=== PATIENT | male | born 1985 | race Two or more races ===

== ENCOUNTER 2020-01-15 12:08 | Outpatient (REF) | payer OTHER, SELFPAY | END 2020-01-15 12:09 | disposition home or self-care (01) | LOC: HO.LAB 12:08 | PROVIDERS: Visit Provider Internal Medicine | DX: Z20.828 Contact with and (suspected) exposure to other viral communicable diseases (principal) | CPT/HCPCS: C9803; U0003 ==

== ENCOUNTER 2020-02-23 11:13 | Outpatient (REF) | payer OTHER, SELFPAY | END 2020-02-23 11:14 | disposition home or self-care (01) | LOC: HO.LAB 11:13 | PROVIDERS: Visit Provider Internal Medicine | DX: Z20.828 Contact with and (suspected) exposure to other viral communicable diseases (principal) | CPT/HCPCS: C9803; U0003 ==

== ENCOUNTER 2020-03-11 09:34 | Emergency (ER) | payer OTHER, SELFPAY ==
[2020-03-11 10:05] VITALS: BP 129/78; PULSE 98; RESP 20; TEMP 37.6; O2SAT 99; BMI 33.2
--- NOTE | 2020-03-11 10:42 | ED.GENADULT ---
HPI - General Adult General Chief complaint: General Medical Stated complaint: fever,strep throat,body aches Time Seen by Provider: 03/11/20 10:05 Source: patient Mode of arrival: ambulatory Limitations: no limitations History of Present Illness HPI narrative: 34 y/o male presenting with 2 days of severe sore throat. He also reports body aches and fevers at home. He works at [employer] and has had no sick contacts. Related Data Previous Rx's Medication Instructions Recorded amoxicillin 500 mg PO BID #20 tab 03/11/20 Allergies Allergy/AdvReac Type Severity Reaction Status Date / Time No Known Allergies Allergy Unverified 11/23/19 15:36 Review of Systems Review of Systems: Constitutional: + Fever, No Chills ENT/Mouth: + sore throat, No Rhinorrhea, No Swallowing Difficulty, +painful swallowing Eyes: No Eye Pain, No Swelling, No Redness Cardiovascular: No Chest Pain, No SOB, No Orthopnea, No Edema Respiratory: No Cough, No Sputum, No Wheezing, No dyspnea Gastrointestinal: No Nausea, No Vomiting, No Diarrhea, No abdominal Pain Genitourinary: No Dysuria, No Urinary Frequency, No Hematuria Musculoskeletal: No joint pain, + Myalgias Skin: No Skin Lesions, No rash Neuro: No Dizziness, + Headache Heme/Lymph: No Bruising, No Lymphadenopathy PMFSH Social History Social History Advance Directives: No Advance Directives Information Provided: No Physical Exam Vital Signs: Vital Signs: Last Vital Signs Temp 99.7 F 03/11/20 10:05 Pulse 98 03/11/20 10:05 Resp 20 03/11/20 10:05 BP 129/78 03/11/20 10:05 Pulse Ox 99 03/11/20 10:05 Body Mass Index 33.2 Appearance: Alert. Oriented X3. No acute distress. HEENT: severe pharyngeal erythema with tonsillar swelling and exudates bilaterally. normal voice. no appreciable abscess. CVS: Normal heart rate and rhythm. Pulses normal. Respiratory: No respiratory distress. Lungs CTAB Skin: Skin warm and dry. Normal skin color. Normal skin turgor. No rashes. Extremities: No LE edema Neuro: Oriented X 3. Non-focal, grossly normal. Course Course Course Narrative: 34 y/o male presenting with sore throat, fevers, body aches. Exam consistent with strep pharyngitis. No evidence of peritonsillar abscess. No distress with normal voice and handling secretions normally. Resp panel negative. Will treat with amoxicillin. Patient counseled. Stable for f/c. Medical Decision Making Lab Data Labs: Lab Results 03/11/20 Range/Units 10:22 Coronavirus (PCR) NEGATIVE (Negative) Influenza Type A (PCR) NEGATIVE (Negative) Influenza Type B (PCR) NEGATIVE (Negative) RSV RNA Qual (PCR) NEGATIVE (Negative) Discharge Plan Discharge Clinical Impression: Pharyngitis Qualifiers: Pharyngitis/tonsillitis etiology: unspecified etiology Qualified Code(s): J02.9 - Acute pharyngitis, unspecified Patient Disposition: Home, Self-Care Instructions: Pharyngitis (ED), Strep Throat (ED) Additional Instructions: You were tested for COVID, Influenza and RSV today. All were negative. You are being treated for strep throat - take the prescribed antibiotics until they are completely gone. Use warm salt water gargles several times throughout the day. Use over the counter Chloraseptic spray or Cepacol lozenges as needed for pain. Take motrin and/or tylenol as needed for pain and fevers. Follow up with your doctor as needed. If you develop difficulty swallowing, diffculty breathing or any other concerning symptom seek medical attention or come back to the ER for further evaluation. Prescriptions: New amoxicillin 500 mg tablet 500 mg PO BID Qty: 20 RF: 0 Stand Alone Forms: Work/School Release
[2020-03-11] MEDS: Amoxicillin 500 MG CAPSULE PO (11:03)
[2020-03-11] MEDS: Ibuprofen 600 MG TABLET PO (11:04)
[2020-03-11 11:14] LABS: Influenza A PCR NEGATIVE (Negative); Influenza B PCR NEGATIVE (Negative); Resp Syncy Virus RNA Qual PCR NEGATIVE (Negative); SARS COV2 PCR INHOUSE NEGATIVE (Negative)
== END 2020-03-11 12:35 | disposition home or self-care (01) ==
PROVIDERS: Physician Assistant; Emergency Provider Emergency Medicine
DX: J02.9 Acute pharyngitis, unspecified (principal); Z20.828 Contact with and (suspected) exposure to other viral communicable diseases
CPT/HCPCS: 0241U; 36415; 87880; 99283

== ENCOUNTER 2020-05-21 10:47 | Emergency (ER) | payer OTHER, SELFPAY ==
[2020-05-21 10:56] VITALS: BP 122/75; PULSE 72; RESP 18; TEMP 37; O2SAT 98; BMI 31.0
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
== END 2020-05-21 11:33 | disposition home or self-care (01) ==
PROVIDERS: Emergency Provider Emergency Medicine
DX: S16.1XXA Strain of muscle, fascia and tendon at neck level, initial encounter (principal); S09.90XA Unspecified injury of head, initial encounter; M54.2 Cervicalgia; V43.52XA Car driver injured in collision with other type car in traffic accident, initial encounter; Y93.9 Activity, unspecified; Y92.9 Unspecified place or not applicable; Y99.9 Unspecified external cause status; Z79.899 Other long term (current) drug therapy
CPT/HCPCS: 99283

== ENCOUNTER 2020-10-24 09:01 | Outpatient (REF) | payer OTHER, SELFPAY ==
[2020-10-24 09:24] LABS: COVID-19 Test Positive (Negative)
== END 2020-10-24 09:02 | disposition home or self-care (01) ==
LOC: HO.LAB 09:01
PROVIDERS: Visit Provider Internal Medicine
DX: Z20.822 Contact with and (suspected) exposure to COVID-19 (principal)
CPT/HCPCS: 36415; 87635; C9803

== ENCOUNTER 2021-02-07 07:35 | Emergency (ER) | payer OTHER, SELFPAY ==
--- NOTE | 2021-02-07 07:38 | ECG_ITS ---
Test Reason : CP/DIFF BREATHING Blood Pressure : / mmHG Vent. Rate : 064 BPM Atrial Rate : 064 BPM P-R Int : 176 ms QRS Dur : 098 ms QT Int : 388 ms P-R-T Axes : 057 048 -09 degrees QTc Int : 400 ms Normal sinus rhythm Slight early repolarization changes in lateral leads Otherwise normal When compared with ECG of 31-MAR-2016 15:06, No significant changes seen Referred By: Generic ED Physician Electronically Signed By:KINGA FUNEZ
[2021-02-07 07:48] VITALS: BP 121/82; PULSE 76; RESP 18; TEMP 36.4; O2SAT 99
--- NOTE | 2021-02-07 07:58 | ED_ITS ---
HPI - SOB/Dyspnea General Stated Complaint: diff breathing Time Seen by Provider: 02/07/21 07:58 Source: patient Mode of arrival: ambulatory Limitations: no limitations History of Present Illness HPI Narrative: patient with shortness of breath and chest tightness for a week. Denies fever or cough. patient states that it feels worse than his asthma. Not relieved with albuterol pumps. No prednisone. patient is not vaccinated against COVID. MD elicited complaint: shortness of breath and cough Pertinent past history: asthma Onset (ago): day(s) Timing: intermittent Severity: moderate Known history of: asthma Associated symptoms: chest pain Treatment prior to arrival: none Related Data Previous Rx's Medication Instructions Recorded amoxicillin 500 mg tablet 500 mg PO BID #20 tab 03/11/20 ibuprofen 800 mg tablet 800 mg PO Q8H PRN #14 tab 05/21/20 Allergies Allergy/AdvReac Type Severity Reaction Status Date / Time No Known Allergies Allergy Verified 05/21/20 10:59 Review of Systems Constitutional: Constitutional: Reports no additional constitutional complaints Eyes: Eyes: Reports no additional eye complaints ENT: Denies dizziness Cardiovascular: Cardiovascular: Reports no additional cardiovascular complaints Respiratory: Respiratory: Reports as per HPI Gastrointestinal: Gastrointestinal: Reports no additional gastrointestinal complaints Musculoskeletal: Musculoskeletal: Reports no additional musculoskeletal complaints Integumentary/Breasts: Skin/Breast: Denies rash Neurologic: Reports system reviewed and no additional complaints, except as documented, Denies dizziness and Denies Sensory deficit (Neuro) Psychiatric: Psychiatric: Denies anxiety [facility] Past Medical History Medical History Asthma Social History Social History Advance Directives: No Advance Directives Information Provided: Yes Physical Exam Vital Signs: Vital Signs: Last Vital Signs Temp 97.6 F 02/07/21 07:48 Pulse 76 02/07/21 07:48 Resp 18 02/07/21 07:48 BP 121/82 02/07/21 07:48 Pulse Ox 99 02/07/21 07:48 Const: General: healthy appearing Nutritional Appearance: average body habitus Orientation/consciousness: oriented to person and patient oriented x3 Limitations: no limitations HENMT: Head: Yes normal to inspection Ears: external ears normal General nose exam: Normal external nose present Mouth: Normal oral and palatal mucosa present and oropharynx normal Throat: Yes posterior oropharynx normal Eyes: General: appearance normal, both eyes and all related structures Neck: Other: supple Neck: Yes normal visual inspection Chest: Chest palpation & inspection: normal inspection of the chest Resp: Auscultation: clear to auscultation bilaterally Cardio: Jugular venous distension: no JVD Rate: regular rate Rhythm: regular rhythm Heart sounds: S1 normal heart sound present and S2 normal heart sound present GI: Inspection: Yes normal to inspection Palpation (GI): Soft to palpation, nontender and No hepatosplenomegaly present Auscultation: normal bowel sounds : General: Yes no CVA tenderness Back/Spine/Pelvis: Back: no CVA tenderness Skin: General skin exam: no rashes or lesions noted Neuro: General: oriented to person and patient oriented x3 Cranial nerves: Yes CN's II-XII intact bilaterally Motor exam (neuro): 5/5 motor strength present throughout Sensory Exam: No Sensory deficit (Neuro) Extrem: General: Yes normal to inspection Psych: Appearance: grossly normal Course Reevaluation(s) Reevaluation #1: Discussed with patient the need for blood work and xrays as his lungs were perfectly clear. Patient got anxious and stated he is not wanting and that and decided to leave against advice Time: 08:04 Discharge Plan Discharge Clinical Impression: Breath shortness Patient Disposition: Left Against Medical Advice Instructions: Shortness of Breath (ED) Additional Instructions: return for worsening symptoms Prescriptions: No Action ibuprofen 800 mg tablet 800 mg PO Q8H PRN (Reason: pain) Qty: 14 RF: 0 amoxicillin 500 mg tablet 500 mg PO BID Qty: 20 RF: 0 Referrals: Physician,None [Primary Care Provider] - 2 days Stand Alone Forms: Against Medical Advice
== END 2021-02-07 08:12 | disposition left against medical advice (07) ==
PROVIDERS: Emergency Provider Emergency Medicine
DX: R06.02 Shortness of breath (principal); J45.909 Unspecified asthma, uncomplicated
CPT/HCPCS: 93005; 99282; 99283

== ENCOUNTER 2021-04-28 07:40 | Emergency (ER) | payer OTHER, SELFPAY ==
--- NOTE | ~2021-04-28 | XR_ITS ---
EXAMINATION: XR CHEST CLINICAL INFORMATION: Dyspnea COMPARISON: None TECHNIQUE: 2 views of the chest were obtained. FINDINGS: The lungs are well-expanded and clear of acute process. Heart size and pulmonary vascularity is normal. No gross bony abnormality. XR/XR chest 2V IMPRESSION: Unremarkable chest exam.
--- NOTE | 2021-04-28 07:50 | ECG_ITS ---
Test Reason : CHEST PAIN Blood Pressure : / mmHG Vent. Rate : 063 BPM Atrial Rate : 063 BPM P-R Int : 174 ms QRS Dur : 102 ms QT Int : 412 ms P-R-T Axes : 065 042 012 degrees QTc Int : 421 ms Normal sinus rhythm with sinus arrhythmia ST elevation, consider early repolarization, pericarditis, or injury Abnormal ECG When compared with ECG of 07-FEB-2021 07:42, No significant changes seen Referred By: Generic ED Physician Electronically Signed By:KINGA FUNEZ
[2021-04-28 08:27] VITALS: BP 125/79; PULSE 60; RESP 18; TEMP 36.4; O2SAT 95; BMI 31.0
--- NOTE | 2021-04-28 10:50 | ED_ITS ---
HPI - Asthma General Chief Complaint: Dyspnea Stated Complaint: diff breathing asthma Time Seen by Provider: 04/28/21 07:48 Source: patient Mode of arrival: ambulatory Limitations: no limitations History of Present Illness HPI Narrative: 35-year-old male with a past medical history of asthma who was diagnosed with COVID in October of 2019 presenting to the ED with complaints of shortness of breath this morning with chest discomfort. He reports he is taking his albuterol inhaler no symptomatic relief. He reports that he does not want to be tested for COVID he actually wants to just leave at this time due to he already waited 3 hours in the waiting room and he reports that people with similar symptoms when into the ER before him and he is upset. He reports that he has to go to work therefore he does not want any labs done or any further evaluation treatment. He denies any fevers, chills, dizziness, headaches, neck pain/stiffness, sore throat, cough, sputum production, dyspnea on exertion, orthopnea, palpitations, nausea/vomiting/diarrhea constipation, lower extremity edema or calf tenderness, palpitations, rashes, recent travel or sick contacts or any other symptoms complaints or concerns at this time. MD complaint: asthma attack , shortness of breath and wheezing Onset (ago): day(s) (He noticed this morning) Severity: moderate Context: other (See above) Associated symptoms: other (See above) Asthma History: childhood onset Treatments Prior to Arrival: inhaled bronchodilator Related Data Current Asthma Therapy: inhaled bronchodilator Previous Rx's Medication Instructions Recorded amoxicillin 500 mg tablet 500 mg PO BID #20 tab 03/11/20 ibuprofen 800 mg tablet 800 mg PO Q8H PRN #14 tab 05/21/20 albuterol sulfate 0.63 mg/3 mL 0.63 mg (3 mL) INHALATION QID PRN 04/28/21 solution for nebulization #75 ml albuterol sulfate 90 mcg/actuation 1 inh INHALATION QID PRN #8.5 g 04/28/21 aerosol inhaler azithromycin 250 mg tablet See Rx Instructions .ROUTE 04/28/21 .COMPLEX #6 tab nebulizers (AeroEclipse II #1 ea 04/28/21 Nebulizer) prednisone 20 mg tablet 40 mg PO DAILY 5 Days #10 tab 04/28/21 Allergies Allergy/AdvReac Type Severity Reaction Status Date / Time No Known Allergies Allergy Verified 05/21/20 10:59 Review of Systems Review of Systems: Constitutional : denies med noncompliance, no history of PE or DVT, denies recent travel, No Fever, No Chills ENT/Mouth : No Hoarseness, No sore throat, No Rhinorrhea, No Nasal congestion, No Sinus Pressure, No Ear Pain, No stridor, Eyes: No Redness, No Discharge, No Vision Changes Cardiovascular : No Chest Pain, + SOB, No Dyspnea on Exertion, No Edema, no pleurisy, Respiratory : No Cough, + wheezing, No Sputum, no stridor, no hemoptysis, Gastrointestinal : No Nausea, No Vomiting, No Diarrhea, No abdominal Pain Genitourinary : No Dysuria, No Hematuria Musculoskeletal : No joint pain/swelling, No Myalgias Extremities: no extremity swelling /pain Skin : No rash, no itching, no swelling Neuro : No Weakness, No Numbness, No Headache, No Dizziness, No Paresthesias Psych : No anxiety, depression Heme/Lymph: No Bruising, No Bleeding Endocrine : No Polyuria, No Polydipsia Yes all other systems are reviewed and are negative FOR[facility]LY [facility], [facility] Past Medical History Attestation statement: The following information was validated with the patient. Medical History Asthma Social History Social History Advance Directives: No Advance Directives Information Provided: Yes Physical Exam Vital Signs: Vital Signs: Last Vital Signs Temp 97.5 F 04/28/21 08:27 Pulse 60 04/28/21 08:27 Resp 18 04/28/21 08:27 BP 125/79 04/28/21 08:27 Pulse Ox 95 04/28/21 08:27 BMI result Body Mass Index 31.0 vital signs have been reviewed as normal and appeared to be correct. Blood pressure normal. Heart rate normal. Respiration rate normal. Temperature normal. Oxygen saturation normal. Appearance: Alert. Oriented X3. No acute distress. Head: Normal external exam. Normocephalic. Atraumatic. Eyes: PERRLA. EOMI. Conjunctiva and sclera normal. Eyelids normal. ENT: Pharynx normal. Uvula midline. Moist mucous membranes. No lesions/ulcerations or masses noted on the tongue. Normal voice. No trismus noted. No drooling noted. No muffled voice noted. Neck: Normal inspection. Neck supple. FROM. No adenopathy. Thyroid Normal. No tracheal deviation noted. No crepitus is noted. No meningeal signs. No neck mass noted. No signs of trauma noted. CVS: Normal heart rate and rhythm. Heart sound normal. Pulses normal throughout. No murmurs/rales/gallops. Respiratory: No respiratory distress. Painless inspiration. Breath sounds normal. No wheezes/rales/rhonchi noted. Chest nontender. No crepitus is noted. No signs of trauma noted. No accessory muscle usage noted or decreased air movement noted. No signs of trauma. Back: Full range of motion noted. Nontender. No signs of trauma. Patient neuro intact bilaterally and distally on all 4 extremities. Patient's reflexes intact bilaterally and distally on all 4 extremities. No rashes/lesion/induration/fluctuance or signs of infection noted. Skin: Skin warm and dry. Normal skin color. Normal skin turgor. No rashes/lesions/lacerations noted. Extremities: No lower extremity edema. No calf tenderness is noted. Extremities exhibit normal range of motion and nontender. Neuro: Oriented X 3. No motor deficit. No sensory deficit. Reflexes normal. Normal steady gait. No focal neuro deficits noted. CN's II-XII intact bilaterally? Vascular: + radial pulses/+ 2 distal pedal pulses/+2 dorsalis pedis b/l. Normal cap refill. No cyanosis noted to upper extremity nails and lower extremity toes nails. Course Course Course Narrative: 35-year-old male with a past medical history of asthma who was diagnosed with COVID in October of 2019 presenting to the ED with complaints of shortness of breath this morning with chest discomfort. He reports he is taking his albuterol inhaler no symptomatic relief. He reports that he does not want to be tested for COVID he actually wants to just leave at this time due to he already waited 3 hours in the waiting room and he reports that people with similar symptoms when into the ER before him and he is upset. He reports that he has to go to work therefore he does not want any labs done or any further evaluation treatment. He denies any fevers, chills, dizziness, headaches, neck pain/stiffness, sore throat, cough, sputum production, dyspnea on exertion, orthopnea, palpitations, nausea/vomiting/diarrhea constipation, lower extremity edema or calf tenderness, palpitations, rashes, recent travel or sick contacts or any other symptoms complaints or concerns at this time. I explained to the patient that his chest x-ray and his EKG were within normal limits no acute processes were noted and there were similar compared to prior. He no longer wants to be here and does not want any labs. Therefore I explained to him that I can send him home with a course of antibiotics, prednisone and albuterol inhaler and instructions to return if any new or worsening symptoms to follow up with primary care provider. Patient understands agrees with this plan. [facility] - Asthma Medical Records Attestation: I reviewed the patient's medical records. Imaging Data Chest x-ray: Attestation: I personally reviewed and interpreted this imaging study as follows: Radiologist's impression: FINDINGS: The lungs are well-expanded and clear of acute process. Heart size and pulmonary vascularity is normal. No gross bony abnormality. XR/XR chest 2V IMPRESSION: Unremarkable chest exam. ECG Data Attestation: I personally reviewed and interpreted this ECG as follows: ECG interpretation date: 04/28/21 ECG interpretation time: 07:49 Interpretation: Normal sinus rhythm with sinus arrhythmia with a ventricular of 66 with early repolarization otherwise no acute ischemic change are noted and similar compared to prior EKG on 02/07/2021. Discharge Plan Discharge Clinical Impression: Asthma with exacerbation Patient Disposition: Home, Self-Care Instructions: Asthma (DC) Additional Instructions: Patient: Alessio Fontenot MR#: [id number] : 1985 Acct:[id number] Age/Sex: 35 / M ADM Date: 04/28/21 Loc: HO.ED Attending Dr: Ordering Physician: Jasmin Browne DO Date of Service: 04/28/21 Procedure(s): XR chest 2V Accession Number(s): [id number] cc: Jasmin Browne DO~ EXAMINATION: XR CHEST CLINICAL INFORMATION: Dyspnea COMPARISON: None TECHNIQUE: 2 views of the chest were obtained. FINDINGS: The lungs are well-expanded and clear of acute process. Heart size and pulmonary vascularity is normal. No gross bony abnormality. XR/XR chest 2V IMPRESSION: Unremarkable chest exam. This is your chest x-ray results above it is within normal limits no evidence of pneumonia or any other abnormalities. Prescriptions: New albuterol sulfate 0.63 mg/3 mL solution for nebulization 0.63 mg inhalation QID PRN (Reason: shortness of breath or wheezing) Qty: 75 0RF (DME) AeroEclipse II Nebulizer Misc See Rx Instructions .ROUTE .MEDSUPPLY Qty: 1 0RF Rx Instructions: As directed albuterol sulfate 90 mcg/actuation HFA aerosol inhaler 1 inh inhalation QID PRN (Reason: shortness of breath or wheezing) Qty: 8.5 0RF azithromycin 250 mg tablet See Rx Instructions .ROUTE .COMPLEX Qty: 6 0RF Rx Instructions: take 500 mg today (day 1), then 250 mg for 4 days (days 2-5) prednisone 20 mg tablet 40 mg PO DAILY 5 Days Qty: 10 0RF No Action ibuprofen 800 mg tablet 800 mg PO Q8H PRN (Reason: pain) Qty: 14 0RF amoxicillin 500 mg tablet 500 mg PO BID Qty: 20 0RF Referrals: Physician,None [Primary Care Provider] - 2 days (your pcp) Stand Alone Forms: Work/School Release
[2021-04-28] MEDS: predniSONE 20 MG TABLET 60 MG PO (10:52)
== END 2021-04-28 10:56 | disposition home or self-care (01) ==
PROVIDERS: Emergency Provider Emergency Medicine
DX: J45.901 Unspecified asthma with (acute) exacerbation (principal); R06.02 Shortness of breath; Z79.899 Other long term (current) drug therapy
CPT/HCPCS: 71046; 93005; 99283

== ENCOUNTER 2021-07-16 09:50 | Emergency (ER) | payer OTHER, SELFPAY ==
--- NOTE | ~2021-07-16 | CT_ITS ---
EXAMINATION: CT HEAD WITHOUT CONTRAST CLINICAL INFORMATION: 36-year-old male with headache COMPARISON: None TECHNIQUE: Contiguous axial imaging was performed from the skull base to vertex without intravenous administration of contrast. This CT examination was performed using dose optimization techniques as appropriate, variously including the following: *Automated exposure control *Adjustment of mA and/or kV according to patient size (this includes techniques or standardized protocols for targeted exams where dose is matched to indication/reason for exam; i.e. extremities or head) *Use of iterative reconstruction technique DLP: 713 mGy-cm FINDINGS: The brain parenchyma has normal attenuation. The diaz-white matter differentiation is well preserved. No evidence of an acute major vascular territory infarction. No intracranial hemorrhage, extra-axial fluid collection, focal mass effect or midline shift. The ventricles have normal size and configuration; no hydrocephalus. The brainstem and cerebellum have a normal appearance. The cerebellar tonsils are in normal position. The calvarium is intact. The visualized paranasal sinuses, mastoid air cells and middle ear cavities are well aerated. The orbits and globes are unremarkable. The temporomandibular joints are normal. CT/CT head/brain wo con IMPRESSION: No acute intracranial pathology.
[2021-07-16 10:13] VITALS: BP 123/92; PULSE 60; RESP 18; TEMP 36.3; O2SAT 99; BMI 31.5
--- NOTE | 2021-07-16 12:19 | ED_ITS ---
HPI - Headache General Chief Complaint: Headache Stated Complaint: headache vomiting Time Seen by Provider: 07/16/21 12:11 Source: patient Mode of arrival: ambulatory Limitations: no limitations History of Present Illness HPI Narrative: 36-year-old male presented for headache evaluation. Complaining of entire head hurt with headache started since yesterday, slight photophobia, no blurry vision, no neck stiffness, no fever, no chills, no sick contact. No history of headache or migraines, patient is up-to-date on his vaccination and immunization. No family history of brain cancer or brain hemorrhage, no known history of cerebral aneurysm. Related Data Previous Rx's Medication Instructions Recorded amoxicillin 500 mg tablet 500 mg PO BID #20 tab 03/11/20 ibuprofen 800 mg tablet 800 mg PO Q8H PRN #14 tab 05/21/20 albuterol sulfate 0.63 mg/3 mL 0.63 mg (3 mL) INHALATION QID PRN 04/28/21 solution for nebulization #75 ml albuterol sulfate 90 mcg/actuation 1 inh INHALATION QID PRN #8.5 g 04/28/21 aerosol inhaler azithromycin 250 mg tablet See Rx Instructions .ROUTE 04/28/21 .COMPLEX #6 tab nebulizers (AeroEclipse II #1 ea 04/28/21 Nebulizer) prednisone 20 mg tablet 40 mg PO DAILY 5 Days #10 tab 04/28/21 Allergies Allergy/AdvReac Type Severity Reaction Status Date / Time No Known Allergies Allergy Verified 05/21/20 10:59 Review of Systems Review of Systems: All other systems are reviewed and are negative Constitutional: Reports as per HPI and Reports no additional constitutional complaints Eyes: Reports as per HPI and Reports no additional eye complaints Reports system reviewed and no additional complaints, except as documented Cardiovascular: Reports as per HPI and Reports no additional cardiovascular complaints Respiratory: Reports as per HPI and Reports no additional respiratory complaints Gastrointestinal: Reports as per HPI and Reports no additional gastrointestinal complaints Genitourinary: Reports no additional female genitourinary complaints Musculoskeletal: Reports no additional musculoskeletal complaints Skin/Breast: Reports system reviewed and no additional complaints, except as docu Psychiatric: Reports no additional psychiatric complaints Endocrine: Reports no additional endocrine complaints Hematologic/Lymphatic: Reports no additional hematologic/lymphatic complaints Allergic/Immunologic: Reports no additional allergic/immunologic complaints Reports system reviewed and no additional complaints, except as documented and Reports Abnormal speech present PMFSH Past Medical History Medical History Asthma Social History Social History Alcohol intake: never Patient Tobacco Use Status: Current everyday Tobacco user Use of substances other than those prescribed or required for medical reasons: No Advance Directives: No Advance Directives Information Provided: No Physical Exam Vital Signs: Vital Signs: Last Vital Signs Temp 98.7 F 07/16/21 12:51 Pulse 73 07/16/21 12:51 Resp 16 07/16/21 12:51 BP 125/87 07/16/21 12:51 Pulse Ox 99 07/16/21 12:51 BMI result Body Mass Index 31.5 Vital signs have been reviewed as appeared to be correct. Blood pressure normal. Heart rate normal. Respiration rate normal. Temperature normal. Oxygen saturation normal. Appearance: Alert. Oriented X3. No acute distress. Head: Normal external exam. Normocephalic. Atraumatic. No Higuera signs noted. No raccoon eyes noted Eyes: PERRLA. EOMI. Conjunctiva and sclera normal. Eyelids normal. ENT: TM's Normal. Pharynx normal. Uvula midline. Moist mucous membranes. No trismus noted. No drooling noted. No muffled voice noted. Neck: Normal inspection. Neck supple. FROM. No adenopathy. Thyroid Normal. No meningeal signs. No neck mass noted. CVS: Normal heart rate and rhythm. Heart sound normal. No murmurs noted. Pulses normal throughout. Respiratory: No respiratory distress. Painless inspiration. Breath sounds normal. No wheezes/rales/rhonchi noted. Chest nontender. No accessory muscle usage noted or decreased air movement noted. Abdomen: Soft and nontender. Bowel sounds normal in all 4 quadrants. No distention noted. No organomegaly noted. No visible injury noted. Back: No CVA tenderness. Full range of motion noted. Skin: Skin warm and dry. Normal skin color. Normal skin turgor. No rashes/lesions/lacerations noted. Extremities: No lower extremity edema. Extremities exhibit normal range of motion. Extremities nontender. Neuro: Oriented X 3. Cranial nerve exam: II-XII are grossly intact No motor deficit. No sensory deficit. Reflexes normal. Course Course Course Narrative: Assessment and plan. 36-year-old male came in for evaluation of headache, patient is refusing IV hydration and IV medication to control his headache, patient is only requesting for a CT, given that the headache more than 6 hours ago and patient describes this headache as the worst headache in his life patient is refusing to do lumbar puncture, I explained to the patient at lengthy the importance of performing the procedure patient is awake and alert and oriented x3 fully understand my instruction and still insisting to leave without any further testing and would like to leave and signed against medical advise. MDM - Headache Lab Data Attestation: I reviewed the patient's lab results. Labs: Lab Results 07/16/21 Range/Units 12:27 Influenza Type A (PCR) NEGATIVE (Negative) Influenza Type B (PCR) NEGATIVE (Negative) RSV RNA Qual (PCR) NEGATIVE (Negative) SARS-CoV-2 RNA (RT-PCR) NEGATIVE (Negative) Imaging Data CT scan - head: Attestation: I personally reviewed and interpreted this imaging study as follows: Radiologist's impression: No acute intracranial pathology Discharge Plan Discharge Clinical Impression: Headache Patient Disposition: Left Against Medical Advice Instructions: Acute Headache (ED) Prescriptions: No Action ibuprofen 800 mg tablet 800 mg PO Q8H PRN (Reason: pain) Qty: 14 0RF amoxicillin 500 mg tablet 500 mg PO BID Qty: 20 0RF albuterol sulfate 0.63 mg/3 mL solution for nebulization 0.63 mg inhalation QID PRN (Reason: shortness of breath or wheezing) Qty: 75 0RF (DME) AeroEclipse II Nebulizer [facility] [place] See Rx Instructions .ROUTE .MEDSUPPLY Qty: 1 0RF Rx Instructions: As directed albuterol sulfate 90 mcg/actuation HFA aerosol inhaler 1 inh inhalation QID PRN (Reason: shortness of breath or wheezing) Qty: 8.5 0RF azithromycin 250 mg tablet See Rx Instructions .ROUTE .COMPLEX Qty: 6 0RF Rx Instructions: take 500 mg today (day 1), then 250 mg for 4 days (days 2-5) prednisone 20 mg tablet 40 mg PO DAILY 5 Days Qty: 10 0RF Referrals: Physician,None [Primary Care Provider] -
[2021-07-16 12:51] VITALS: BP 125/87; PULSE 73; RESP 16; TEMP 37.1; O2SAT 99
--- NOTE | 2021-07-16 13:01 | PC.NURSE ---
pt adamantly refused all heplock and iv meds for his headache management. md at bedside explaining risk/benefits of headache protocol.
[2021-07-16 13:14] LABS: Influenza A PCR NEGATIVE (Negative); Influenza B PCR NEGATIVE (Negative); Resp Syncy Virus RNA Qual PCR NEGATIVE (Negative); SARS COV2 PCR INHOUSE NEGATIVE (Negative)
== END 2021-07-16 14:44 | disposition left against medical advice (07) ==
PROVIDERS: Emergency Provider Emergency Medicine
DX: R51.9 Headache, unspecified (principal); F17.200 Nicotine dependence, unspecified, uncomplicated; Z79.899 Other long term (current) drug therapy; Z71.6 Tobacco abuse counseling; Z20.822 Contact with and (suspected) exposure to COVID-19
CPT/HCPCS: 0241U; 70450; 96361; 96374; 96375; 99284

== ENCOUNTER 2022-10-01 09:25 | Emergency (ER) | payer MEDICAID, SELFPAY ==
--- NOTE | ~2022-10-01 | XR_ITS ---
EXAMINATION: XR CHEST CLINICAL INFORMATION: Anterior chest pain. COMPARISON: 04/28/2021 chest radiographs. TECHNIQUE: Frontal view of the chest was obtained. FINDINGS: No significant abnormality is noted involving the heart, lungs, mediastinum, bony thorax or soft tissues. XR/XR chest 1V IMPRESSION: No acute cardiopulmonary process.
[2022-10-01 09:29] VITALS: BP 118/82; PULSE 65; RESP 16; TEMP 36; O2SAT 98; BMI 29.2
--- NOTE | 2022-10-01 09:33 | ECG_ITS ---
Test Reason : chest pain Blood Pressure : / mmHG Vent. Rate : 059 BPM Atrial Rate : 059 BPM P-R Int : 164 ms QRS Dur : 096 ms QT Int : 416 ms P-R-T Axes : 040 034 011 degrees QTc Int : 411 ms Sinus bradycardia Nonspecific ST and T wave abnormality Abnormal ECG When compared with ECG of 28-APR-2021 07:49, No significant change was found Referred By: Generic ED Physician Electronically Signed By:JODEE SPENCER MD
[2022-10-01 10:03] LABS: MANUAL DIFF FLAG NO
[2022-10-01 10:04] LABS: Basophils Percent Auto 0.4 % (0-2); Eosinophils Absolute Auto 0.3 X10*3/uL (0.0-0.4); Eosinophils Percent Auto 4.5 % (0-4); Hemoglobin 15.7 g/dl (14.0-18.0); Imm Gran Abs Auto 0.04 X10*3/uL (0.00-0.03); Imm Gran Pct Auto 0.5 % (0.0-0.4); Lymphocytes Absolute Auto 2.2 X10*3/uL (1.2-4.9); Lymphocytes Percent Auto 29.2 % (20-40); Mean Corpuscular HGB Conc 32.7 g/dl (31.0-36.0); Mean Corpuscular Hemoglobin 28.4 pg (27.0-33.0); Mean Platelet Volume 9.1 fL (9.4-12.4); Monocytes Absolute Auto 0.6 X10*3/uL (0.1-1.2); Monocytes Percent Auto 7.8 % (2-11); Neutrophils Absolute Auto 4.3 x10*3/uL (2.0-8.3); Neutrophils Percent Auto 57.6 % (45-73); Platelet Count 212 X10*3/uL (160-400); Red Blood Count 5.52 X10*6/uL (4.60-5.80); Red Cell Distribution Width 13.2 % (11.0-16.0); White Blood Count 7.5 X10*3/uL (4.8-10.8)
[2022-10-01 10:17] LABS: Anion Gap 14 (12-20); Blood Urea Nitrogen 16 mg/dL (9-16); Calcium 9.5 mg/dL (8.4-10.2); Carbon Dioxide 23 mmol/L (22-29); Chloride 107 mmol/L (96-108); Creatinine Clr Calc Pharmacy 116.6; Estimated Glomerular Filt Rate > 60; Glucose Random 102 mg/dL (60-115); Potassium 4.1 mmol/L (3.3-5.1); Sodium 140 mmol/L (135-145)
[2022-10-01 10:31] LABS: Troponin-I High Sensitivity < 2.7 ng/L (<3.5-35.0)
--- NOTE | 2022-10-01 10:38 | ED.CHESTPAIN ---
HPI - Chest Pain General Chief Complaint: Chest Pain Stated Complaint: chest pain asthma Time Seen by Provider: 10/01/22 10:12 Source: patient Mode of arrival: ambulatory Limitations: no limitations History of Present Illness HPI narrative: This is a 37-year-old male with a history of asthma who presents to the ER with complaints of chest tightness which is intermittent with shortness of breath and dry cough since September 21. Patient reports this for started while he was working. 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 That day he was working in the hot of in moving boxes of [place] and was exposed to dust. Patient reports he has had to use his nebulizer and albuterol several times since the incident. He denies any fevers, chills, leg swelling, leg pain, dizziness, palpitations. Patient reports he smokes cigarettes daily and marijuana. He denies any recent travel, recent sick contact No family history of sudden cardiac disease, blood clots Related Data Previous Rx's Medication Instructions Recorded amoxicillin 500 mg tablet 500 mg PO BID #20 tabs 03/11/20 ibuprofen 800 mg tablet 800 mg PO Q8H PRN pain #14 tabs 05/21/20 albuterol sulfate 0.63 mg/3 mL 0.63 mg (3 mL) inhalation QID PRN 04/28/21 solution for nebulization shortness of breath or wheezing #75 mL albuterol sulfate 90 mcg/actuation 1 inh inhalation QID PRN shortness 04/28/21 aerosol inhaler of breath or wheezing #8.5 grams azithromycin 250 mg tablet See Rx Instructions PO .COMPLEX #6 04/28/21 tabs nebulizers (AeroEclipse II #1 ea 04/28/21 Nebulizer) prednisone 20 mg tablet 40 mg PO DAILY sob 5 days #10 tabs 04/28/21 albuterol sulfate 90 mcg/actuation 2 inh inhalation Q4-6H PRN 10/01/22 breath activated powder shortness of breath or wheezing #1 inhaler,sensor ea prednisone 20 mg tablet 40 mg PO DAILY #10 tabs 10/01/22 Allergies Allergy/AdvReac Type Severity Reaction Status Date / Time No Known Allergies Allergy Verified 05/21/20 10:59 Review of Systems Review of Systems: Yes all other systems are reviewed and are negative Constitutional: Constitutional: Reports no additional constitutional complaints, Denies body ache(s), Denies chills, Denies fever(s), Denies headache(s) and Denies weakness Eyes: Eyes: Reports no additional eye complaints and Denies change in vision ENT: Reports system reviewed and no additional complaints, except as documented, Denies dizziness, Denies headache(s), Denies nasal congestion, Denies nasal discharge and Denies neck pain Cardiovascular: Cardiovascular: Reports no additional cardiovascular complaints, Reports chest pain, Denies leg edema and Reports dyspnea Respiratory: Respiratory: Reports no additional respiratory complaints, Denies cough and Reports dyspnea Gastrointestinal: Gastrointestinal: Reports no additional gastrointestinal complaints, Denies abdominal pain, Denies diarrhea, Denies nausea and Denies vomiting Genitourinary: Genitourinary: Denies urinary incontinence Musculoskeletal: Musculoskeletal: Reports no additional musculoskeletal complaints, Denies back pain, Denies arthralgias, Denies joint swelling, Denies neck pain, Denies numbness and Denies tingling Integumentary/Breasts: Skin/Breast: Reports system reviewed and no additional complaints, except as docu and Denies rash Neurologic: Reports system reviewed and no additional complaints, except as documented, Denies Abnormal speech present, Denies dizziness, Denies headache(s), Denies numbness, Denies tingling and Denies weakness PMFSH Past Medical History Attestation statement: The following information was validated with the patient. Source: old records reviewed and nursing notes reviewed Medical History Asthma Social History Social History Alcohol intake: never Patient Tobacco Use Status: Current everyday Tobacco user Smoked in Last 30 Days: Yes Use of substances other than those prescribed or required for medical reasons: No Advance Directives: No Advance Directives Information Provided: Yes Physical Exam Vital Signs: Vital Signs: Last Vital Signs Temp 98.1 F 10/01/22 10:59 Pulse 75 10/01/22 10:59 Resp 16 10/01/22 10:59 BP 153/89 H 10/01/22 10:59 Pulse Ox 100 10/01/22 10:59 O2 Del Method Room Air 10/01/22 10:59 BMI result Body Mass Index 29.2 Const: General: cooperative, healthy appearing, comfortable and no acute distress Orientation/consciousness: patient oriented x3 Limitations: no limitations HEENT: Head: Yes normal to inspection Ears: hearing grossly normal bilaterally General nose exam: Normal external nose present Face and sinus: Yes normal facial exam Mouth: Normal oral and palatal mucosa present Throat: Yes posterior oropharynx normal Eyes: General: appearance normal, both eyes and all related structures Pupils: Equal, round and reactive pupils present Neck: Neck: Yes normal visual inspection Chest: Chest palpation & inspection: normal inspection of the chest Resp: Effort & Inspection: normal respiratory effort Auscultation: clear to auscultation bilaterally Cardio: Rate: regular rate Rhythm: regular rhythm Peripheral pulses: Peripheral pulses 2+ throughout GI: Inspection: Yes normal to inspection Palpation (GI): Soft to palpation and nontender Auscultation: normal bowel sounds Back/Spine/Pelvis: Thoracic/Lumbar Spine: thoracic and lumbar spine normal to inspection Skin: General skin exam: no rashes or lesions noted Neuro: General: patient oriented x3, no focal motor deficits and normal sensation to monofilament Cranial nerves: Yes Equal, round and reactive pupils present Cognition (Neuro): normal cognition Speech: No Abnormal speech present Gait exam (Neuro): Normal gait present Motor exam (neuro): 5/5 motor strength present throughout Extrem: General: Yes normal to inspection, Yes no pedal edema and Yes no calf tenderness Course Course Course Narrative: Labs are unremarkable. Chest x-ray shows no acute finding. EKG is nonischemic. Patient may have a mild asthma exacerbation secondary to environmental exposure while working. I will give him a refill for his albuterol MDI and give him a prescription for course of prednisone. Reviewed worrisome signs and symptoms of when to return to the emergency room. Comfortable plan for discharge home. Medical Decision Making Medical Decision Making MDM Narrative: 37-year-old male here with chest tightness, shortness of breath, dry cough since September 21 which occurred after working in a hot setting with dust particles. Patient has had to use his nebulizer and albuterol several times the incident. His vitals are stable. His lungs are clear Will check labs, chest x-ray, EKG Differential Diagnosis Differential Diagnoses: The differential diagnosis associated with the presentation includes ACS-low concern with negative troponin and EKG, history not typical for ACS. Heart score 0 PE-less likely with no hypoxia, no tachypnea, no tachycardia. No clinical findings concerning for DVT. No risk factors. Perc score 0 Low concern for aortic dissection with gradual onset Asthma exacerbation PTX Admission/Observation Consideration of admission/observation: Escalation of care including admission/observation considered Chest pain atypical for ACS with heart score 0. No need for admission for further workup Lab Data MDM Lab Attestation statement: I reviewed the patient's lab results. I independently reviewed the labs which show negative troponin 10/01/22 09:57 10/01/22 09:57 Labs: Lab Results 10/01/22 10/01/22 10/01/22 Range/Units 09:57 09:57 09:57 WBC 7.5 (4.8-10.8) X10*3/uL RBC 5.52 (4.60-5.80) X10*6/uL Hgb 15.7 (14.0-18.0) g/dl Hct 48.0 (42.0-52.0) % MCV 87.0 (80.0-98.0) fL MCH 28.4 (27.0-33.0) pg MCHC 32.7 (31.0-36.0) g/dl RDW 13.2 (11.0-16.0) % Plt Count 212 (160-400) X10*3/uL MPV 9.1 L (9.4-12.4) fL Immature Gran % (Auto) 0.5 H (0.0-0.4) % Neut % (Auto) 57.6 (45-73) % Lymph % (Auto) 29.2 (20-40) % Burke % (Auto) 7.8 (2-11) % Eos % (Auto) 4.5 H (0-4) % Baso % (Auto) 0.4 (0-2) % Lymph # (Auto) 2.2 (1.2-4.9) X10*3/uL Burke # (Auto) 0.6 (0.1-1.2) X10*3/uL Eos # (Auto) 0.3 (0.0-0.4) X10*3/uL Baso # (Auto) 0.0 (0.0-0.2) X10*3/uL Abs Immat Gran (auto) 0.04 H (0.00-0.03) X10*3/uL Absolute Neuts (auto) 4.3 (2.0-8.3) x10*3/uL Absolute Nucleated RBC 0.000 (0.0-0.012) X10*3/uL Nucleated RBC % (auto) 0.0 (0.0-0.2) /100WBC Sodium 140 (135-145) mmol/L Potassium 4.1 (3.3-5.1) mmol/L Chloride 107 (96-108) mmol/L Carbon Dioxide 23 (22-29) mmol/L Anion Gap 14 (12-20) BUN 16 (9-16) mg/dL Creatinine 0.97 (0.5-1.4) mg/dL Estim Creat Clear Calc 116.6 Estimated GFR > 60 Random Glucose 102 (60-115) mg/dL Calcium 9.5 (8.4-10.2) mg/dL Troponin I High Sens < 2.7 (<3.5-35.0) ng/L Independent Interpretation I performed an independent interpretation of an: EKG and Plain X-Ray Interpretation: I indepedentely reviewed the EKG which shows sinus bradycardia with a rate of 59, normal DE, normal QRS, normal QT I independently viewed the chest x-ray and agree with the radiology report Radiology Impression Discussion of test interpretation with radiology: I have reviewed the radiologist's reading. Radiologist Impression: [place] [id number] XRay Report Signed Patient: Alessio Fontenot MR#: [id number] : 1985 Acct:[id number] Age/Sex: 37 / M ADM Date: 10/01/22 Loc: .ED Attending Dr: Ordering Physician: Generic ED Physician Date of Service: 10/01/22 Procedure(s): XR chest 1V Accession Number(s): [id number] cc: Generic ED Physician~ EXAMINATION: XR CHEST CLINICAL INFORMATION: Anterior chest pain. COMPARISON: 04/28/2021 chest radiographs. TECHNIQUE: Frontal view of the chest was obtained. FINDINGS: No significant abnormality is noted involving the heart, lungs, mediastinum, bony thorax or soft tissues. XR/XR chest 1V IMPRESSION: No acute cardiopulmonary process. ? Discharge Plan Discharge Clinical Impression: Chest pain Patient Disposition: Home, Self-Care Instructions: Chest Pain (DC) Additional Instructions: Your lab work, EKG and chest x-ray are reassuring Please follow-up with primary care doctor for any continued symptoms Please return to the ER for any worsening symptoms Continue your albuterol as needed Prescriptions: New prednisone 20 mg tablet 40 mg PO DAILY Qty: 10 0RF albuterol sulfate 90 mcg/actuation aero powdr breath act w/sensor 2 inh inhalation Q4-6H PRN (Reason: shortness of breath or wheezing) Qty: 1 0RF No Action ibuprofen 800 mg tablet 800 mg PO Q8H PRN (Reason: pain) Qty: 14 0RF amoxicillin 500 mg tablet 500 mg PO BID Qty: 20 0RF albuterol sulfate 0.63 mg/3 mL solution for nebulization 0.63 mg inhalation QID PRN (Reason: shortness of breath or wheezing) Qty: 75 0RF (DME) AeroEclipse II Nebulizer Misc See Rx Instructions .ROUTE .MEDSUPPLY Qty: 1 0RF Rx Instructions: As directed albuterol sulfate 90 mcg/actuation HFA aerosol inhaler 1 inh inhalation QID PRN (Reason: shortness of breath or wheezing) Qty: 8.5 0RF azithromycin 250 mg tablet See Rx Instructions .ROUTE .COMPLEX Qty: 6 0RF Rx Instructions: take 500 mg today (day 1), then 250 mg for 4 days (days 2-5) prednisone 20 mg tablet 40 mg PO DAILY 5 Days Qty: 10 0RF Referrals: Physician,None [Primary Care Provider] - 1 week (PCP for continued symptoms ) Stand Alone Forms: Work/School Release
[2022-10-01 10:55] VITALS: PULSE 78
[2022-10-01 10:59] VITALS: BP 153/89; PULSE 75; RESP 16; TEMP 36.7; O2SAT 100
== END 2022-10-01 11:00 | disposition home or self-care (01) ==
PROVIDERS: Emergency Provider Emergency Medicine Emergency Medical Services
DX: R07.89 Other chest pain (principal); J45.909 Unspecified asthma, uncomplicated; F17.200 Nicotine dependence, unspecified, uncomplicated; Z71.6 Tobacco abuse counseling; Z79.899 Other long term (current) drug therapy
CPT/HCPCS: 36415; 71045; 80048; 84484; 85025; 93005; 99284; 99285

== ENCOUNTER → 2022-10-01 09:33 | Outpatient (BNV) | payer SELFPAY | PROVIDERS: Emergency Provider Emergency Medicine Emergency Medical Services; Visit Provider Internal Medicine Cardiovascular Disease | DX: R07.9 Chest pain, unspecified (principal) | CPT/HCPCS: 93010 ==

== ENCOUNTER 2024-01-26 07:58 | Emergency (ER) | payer MEDICAID, OTHER, SELFPAY ==
--- NOTE | ~2024-01-26 | XR_ITS ---
EXAMINATION: XR ELBOW, RIGHT CLINICAL INFORMATION: pain, no known injury COMPARISON: None available. TECHNIQUE: AP, lateral, and oblique views of the right elbow. FINDINGS: No acute cortical disruption or malalignment. No joint effusion. No metallic or radiopaque foreign body. No subcutaneous emphysema. No lytic or blastic lesions. XR/XR elbow RT min 3V IMPRESSION: Normal exam. Electronically signed by: Santiago Perez MD 01/26/2024 09:30 AM [facility]
[2024-01-26 08:01] VITALS: BP 115/71; PULSE 61; RESP 16; TEMP 37.1; O2SAT 99; BMI 28.0
--- NOTE | 2024-01-26 08:10 | ED_ITS ---
HPI - Extremity Problem General Chief complaint: Extremity Injury, Upper Stated complaint: R elbow pain Time Seen by Provider: 01/26/24 08:10 Source: patient Mode of arrival: ambulatory Limitations: no limitations History of Present Illness ED Provider: Lidya Mcknight PA-C HPI Narrative: Patient is a 38 year old assigned male at with a history of asthma presenting to the emergency department today with right elbow pain. Patient states that over the last month he has had right elbow pain that is worse with flexion of his right forearm. Patient states that he works at [employer] and does a lot of repetitive movement. Patient denies any dizziness, lightheadedness, abdominal pain, nausea, vomiting, fever, chills, blurry vision, double vision, loss of vision, chest pain, difficulty breathing, shortness of breath, back pain, night sweats, pain with urination, increased urinary frequency, increased urinary urgency, blood in his urine or stool, syncope or a near syncopal episode, recent trauma or falls, bowel incontinence, bladder incontinence, or any other complaints at this time. MD Complaint: extremity pain Onset (ago): month(s) (1) Location: right and upper extremity Relieving factors: nothing Exacerbating factors: range of motion Associated symptoms: denies other symptoms Related Data Previous Rx's ?Medication ?Instructions ?Recorded amoxicillin 500 mg tablet 500 mg PO BID #20 tabs 03/11/20 ibuprofen 800 mg tablet 800 mg PO Q8H PRN pain #14 tabs 05/21/20 albuterol sulfate 0.63 mg/3 mL 0.63 mg (3 mL) inhalation QID PRN 04/28/21 solution for nebulization shortness of breath or wheezing #75 mL albuterol sulfate 90 mcg/actuation 1 inh inhalation QID PRN shortness 04/28/21 aerosol inhaler of breath or wheezing #8.5 grams azithromycin 250 mg tablet See Rx Instructions PO .COMPLEX #6 04/28/21 tabs nebulizers (AeroEclipse II #1 ea 04/28/21 Nebulizer) prednisone 20 mg tablet 40 mg (2 x 20 mg) PO DAILY sob 5 04/28/21 days #10 tabs albuterol sulfate 90 mcg/actuation 2 inh inhalation Q4-6H PRN 10/01/22 breath activated powder shortness of breath or wheezing #1 inhaler,sensor ea prednisone 20 mg tablet 40 mg (2 x 20 mg) PO DAILY #10 tabs 10/01/22 naproxen 500 mg tablet 500 mg PO BID 7 days #14 tabs 01/26/24 prednisone 20 mg tablet 20 mg PO DAILY 7 days #7 tabs 01/26/24 Allergies Allergy/AdvReac Type Severity Reaction Status Date / Time No Known Allergies Allergy Verified 01/26/24 08:03 Review of Systems Constitutional: Constitutional: Reports no additional constitutional complaints, Denies chills, Denies fever(s) and Denies night sweats Eyes: Eyes: Reports no additional eye complaints, Denies blurry vision, Denies change in vision, Denies diplopia, Denies eye discharge, Denies loss of vision and Denies eye pain ENT: Denies dizziness Cardiovascular: Cardiovascular: Reports no additional cardiovascular complaints, Denies chest pain, Denies lightheadedness, Denies Loss of Consciousness and Denies dyspnea Respiratory: Respiratory: Reports no additional respiratory complaints and Denies dyspnea Gastrointestinal: Gastrointestinal: Reports no additional gastrointestinal complaints, Denies abdominal pain, Denies melena, Denies hematochezia, Denies change in bowel habits and Denies change in stool character Genitourinary: Genitourinary: Reports no additional male genitourinary complaints, Denies hematuria, Denies oliguria, Denies difficulty urinating, Denies dysuria, Denies urinary frequency, Denies urinary hesitancy, Denies urinary incontinence and Denies urinary urgency Musculoskeletal: Musculoskeletal: Reports no additional musculoskeletal complaints, Denies numbness and Denies tingling Comments: right elbow pain Neurologic: Denies dizziness, Denies loss of vision, Denies numbness and Denies tingling Psychiatric: Psychiatric: Reports no additional psychiatric complaints Endocrine: Endocrine: Reports no additional endocrine complaints Hematologic/Lymphatic: Hematologic/Lymphatic: Reports no additional hematologic/lymphatic complaints Allergic/Immunologic: Allergic/Immunologic: Reports no additional allergic/immunologic complaints PMFSH Past Medical History Attestation statement: The following information was validated with the patient. Source: old records reviewed and nursing notes reviewed Medical History Asthma Social History Social History Alcohol intake: never Patient Tobacco Use Status: Current everyday Tobacco user Advance Directives: No Advance Directives Information Provided: Yes Physical Exam Vital Signs: Vital Signs: Last Vital Signs Temp 98.7 F 01/26/24 09:29 Pulse 61 01/26/24 09:29 Resp 16 01/26/24 09:29 BP 115/71 01/26/24 09:29 Pulse Ox 99 01/26/24 09:29 O2 Del Method Room Air 01/26/24 09:29 BMI result Body Mass Index 28.0 Const: General: cooperative, no acute distress, alert and awake Nutritional Appearance: well nourished Orientation/consciousness: patient oriented x3 Limitations: no limitations HEENT: Head: Yes normal to inspection and Yes atraumatic Ears: hearing grossly normal bilaterally and external ears normal General nose exam: Normal external nose present, no nasal discharge noted and no epistaxis Face and sinus: Yes normal facial exam, No abrasion and No laceration Mouth: Normal oral and palatal mucosa present, no drooling and no muffled voice Eyes: General: appearance normal, both eyes and all related structures Periorbital: periorbital findings normal Eyelids: Yes eyelids normal Conjunctivae: conjunctivae normal Pupils: Equal, round and reactive pupils present EOM: EOMs intact bilaterally Neck: Neck: Yes normal visual inspection, Yes full ROM and Yes no lymphadenopathy Chest: Chest palpation & inspection: normal inspection of the chest Resp: Effort & Inspection: normal respiratory effort and able to speak in complete sentences GI: Inspection: Yes normal to inspection Neuro: General: patient oriented x3 and moves all extremities Cranial nerves: Yes Equal, round and reactive pupils present Cognition (Neuro): normal cognition Extrem: Other: pain with palpation of the right distal bicep tendon pain with right forearm flexion General: Yes normal to inspection and Yes capillary refill normal Psych: Appearance: grossly normal Mental Status: mental status grossly normal Affect: normal affect Attitude: cooperative Thought process: Normal thought process present Thought content: Normal thought content present Insight: Good insight present (Psych) Medical Decision Making Medical Decision Making MDM Narrative: Patient is a 38 year old assigned male at with a history of asthma presenting to the emergency department today with right elbow pain. Patient's physical exam was as noted in the physical exam portion of this note. Patient's right elbow x-ray showed no acute process. I explained my physical exam findings as well as all test results to the patient. I answered all questions asked by the patient. I stressed the importance of the patient taking his medication as directed (either prescribed or as the over the counter packaging recommends). I stressed the importance of the patient following up with his primary care provider and an orthopedic provider. I stressed the importance of the patient returning to the emergency department immediately if his symptoms were to worsen or if he were to develop any dizziness, shortness of breath, difficulty breathing, chest pain, blurry vision, loss of vision, nausea, vomiting, abdominal pain, fever, chills, back pain, or any other complaints. Patient verbalized agreement and understanding with this treatment plan and discharge. Differential Diagnosis Differential Diagnoses: The differential diagnosis associated with the presentation includes Right elbow pain Right distal bicep tendonitis Admission/Observation Consideration of admission/observation: Escalation of care including admission/observation considered Patient would have been admitted to the hospital had his work up had any findings where hospital admission was appropriate and his clinical presentation warranted hospital admission. Independent Interpretation I performed an independent interpretation of an: Plain X-Ray Interpretation: My interpretation is in agreement with the radiologist's impression of this imaging study. EXAMINATION: XR ELBOW, RIGHT CLINICAL INFORMATION: pain, no known injury COMPARISON: None available. TECHNIQUE: AP, lateral, and oblique views of the right elbow. FINDINGS: No acute cortical disruption or malalignment. No joint effusion. No metallic or radiopaque foreign body. No subcutaneous emphysema. No lytic or blastic lesions. XR/XR elbow RT min 3V IMPRESSION: Normal exam. Electronically signed by: Santiago ePrez MD 01/26/2024 09:30 AM [facility] Dictated By: Santiago Acosta MD Signed By: Electronically signed by Santiago Grady MD 01/26/24 [id number] Radiology Impression Discussion of test interpretation with radiology: I have reviewed the radiologist's reading. Discharge Plan Discharge Clinical Impression: Tendonitis Patient Disposition: Home, Self-Care Instructions: Tendinitis (ED) Additional Instructions: Your exam is most consistent with distal biceps tendinitis. The medication I've prescribed you can cause some stomach upset - you may take over the counter omeprazole and/or famoitidine for this. Follow up with your primary care provider and an orthopedic provider. Return to the emergency department immediately if your symptoms worsen or if you develop any dizziness, shortness of breath, difficulty breathing, chest pain, blurry vision, loss of vision, nausea, vomiting, abdominal pain, fever, chills, back pain, or any other complaints. Prescriptions: New prednisone 20 mg tablet 20 mg PO DAILY 7 Days Qty: 7 0RF naproxen 500 mg tablet 500 mg PO BID 7 Days Qty: 14 0RF No Action ibuprofen 800 mg tablet 800 mg PO Q8H PRN (Reason: pain) Qty: 14 0RF amoxicillin 500 mg tablet 500 mg PO BID Qty: 20 0RF albuterol sulfate 0.63 mg/3 mL solution for nebulization 0.63 mg inhalation QID PRN (Reason: shortness of breath or wheezing) Qty: 75 0RF (DME) AeroEclipse II [place]ul[place] [facility] [place] Instructions .ROUTE .MEDSUPPLY Qty: 1 0RF Rx Instructions: As directed albuterol sulfate 90 mcg/actuation HFA aerosol inhaler 1 inh inhalation QID PRN (Reason: shortness of breath or wheezing) Qty: 8.5 0RF azithromycin 250 mg tablet See Rx Instructions .ROUTE .COMPLEX Qty: 6 0RF Rx Instructions: take 500 mg today (day 1), then 250 mg for 4 days (days 2-5) prednisone 20 mg tablet 40 mg PO DAILY 5 Days Qty: 10 0RF prednisone 20 mg tablet 40 mg PO DAILY Qty: 10 0RF albuterol sulfate 90 mcg/actuation aero powdr breath act w/sensor 2 inh inhalation Q4-6H PRN (Reason: shortness of breath or wheezing) Qty: 1 0RF Referrals: [facility] [place] [facility] [place] Group] (Call to establish and follow up with a primary care provider. If you already have a primary care provider, please follow up with them.) [facility] [place] [facility] [Provider Group] (Call to establish and follow up with a primary care provider. If you already have a primary care provider, please follow up with them.) [facility] [place] [facility] [Provider Group] (Call to establish and follow up with a primary care provider. If you already have a primary care provider, please follow up with them.) [facility] [place] [facility] [Provider Group] (Call to establish and follow up with an orthopedic provider. ) Stand Alone Forms: Work/School Release Interventions: ED Discharge Assessment Last Done: 01/26/24 09:29 Discharge Date/Time: 01/26/24 09:29 Print Language: Vietnamese
[2024-01-26 09:29] VITALS: BP 115/71; PULSE 61; RESP 16; TEMP 37.1; O2SAT 99
== END 2024-01-26 09:29 | disposition home or self-care (01) ==
PROVIDERS: Emergency Provider Emergency Medicine
DX: M77.8 Other enthesopathies, not elsewhere classified (principal); M25.521 Pain in right elbow
CPT/HCPCS: 73080; 99282; 99283

== ENCOUNTER → 2024-01-26 08:25 | Outpatient (BNV) | payer SELFPAY | PROVIDERS: Emergency Provider Emergency Medicine; Visit Provider Radiology Diagnostic Radiology | DX: M25.521 Pain in right elbow (principal) | CPT/HCPCS: 73080 ==

== ENCOUNTER 2024-02-04 07:26 | Emergency (ER) | payer MEDICAID, OTHER, SELFPAY ==
[2024-02-04 07:54] VITALS: BP 141/83; PULSE 61; RESP 16; TEMP 36.1; O2SAT 96; BMI 30.1
--- NOTE | 2024-02-04 07:57 | ED.EXTPRO ---
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 Just seen here and treated with naprosyn and prednisone. No rash, no IVDA. Could not go to work today. Complaint: joint pain Onset (ago): day(s) (several) Pain Consistency: intermittent Location: right and elbow Quality: stabbing Radiation: distal Relieving factors: immobilization Exacerbating factors: range of motion and palpation Associated symptoms: denies other symptoms Context: other (overuse) Related Data Previous Rx's ?Medication ?Instructions ?Recorded amoxicillin 500 mg tablet 500 mg PO BID #20 tabs 03/11/20 ibuprofen 800 mg tablet 800 mg PO Q8H PRN pain #14 tabs 05/21/20 albuterol sulfate 0.63 mg/3 mL 0.63 mg (3 mL) inhalation QID PRN 04/28/21 solution for nebulization shortness of breath or wheezing #75 mL albuterol sulfate 90 mcg/actuation 1 inh inhalation QID PRN shortness 04/28/21 aerosol inhaler of breath or wheezing #8.5 grams azithromycin 250 mg tablet See Rx Instructions PO .COMPLEX #6 04/28/21 tabs nebulizers (AeroEclipse II #1 ea 04/28/21 Nebulizer) prednisone 20 mg tablet 40 mg (2 x 20 mg) PO DAILY sob 5 04/28/21 days #10 tabs albuterol sulfate 90 mcg/actuation 2 inh inhalation Q4-6H PRN 10/01/22 breath activated powder shortness of breath or wheezing #1 inhaler,sensor ea prednisone 20 mg tablet 40 mg (2 x 20 mg) PO DAILY #10 tabs 10/01/22 naproxen 500 mg tablet 500 mg PO BID 7 days #14 tabs 01/26/24 prednisone 20 mg tablet 20 mg PO DAILY 7 days #7 tabs 01/26/24 cyclobenzaprine 10 mg tablet 10 mg PO TID PRN muscle spasm #20 02/04/24 tabs lidocaine 4 % topical gel 1 appl topical BID PRN pain #30 02/04/24 grams Allergies Allergy/AdvReac Type Severity Reaction Status Date / Time No Known Allergies Allergy Verified 02/04/24 07:55 Review of Systems Review of Systems: Constitutional : No Fever, No Chills ENT/Mouth : No Ear Pain, No Hoarseness, No sore throat Eyes: No Eye Pain, No Swelling, No Redness, No Foreign Body Cardiovascular : No Chest Pain, No SOB Respiratory : No Cough, No Dyspnea Gastrointestinal : No Nausea, No Vomiting, No Diarrhea, No abdominal Pain Genitourinary : No Dysuria, No Hematuria Musculoskeletal : positive joint pain, No Myalgias, No Joint Swelling Skin : No Skin lacerations, No rash Neuro : No Weakness, No Numbness All other systems reviewed and are negative [facility] Past Medical History Attestation statement: The following information was validated with the patient. Source: old records reviewed Medical History Asthma Social History Social History Alcohol intake: never Patient Tobacco Use Status: Current everyday Tobacco user Do you have a plan to hurt others: No Plan Physical Exam Vital Signs: Vital Signs: Last Vital Signs Temp 96.9 F 02/04/24 07:54 Pulse 61 02/04/24 07:54 Resp 16 02/04/24 07:54 BP 141/83 H 02/04/24 07:54 Pulse Ox 96 02/04/24 07:54 O2 Del Method Room Air 02/04/24 07:54 BMI result Body Mass Index 30.1 Appearance: Alert. Oriented X3. No acute distress. Eyes: Pupils equal, round and reactive to light. ENT: Pharynx normal. Neck: Normal inspection. Neck supple. CVS: Pulses normal. Respiratory: No respiratory distress. Abdomen: atraumatic Skin: Skin warm and dry. Normal skin color. Extremities: No lower extremity edema. R elbow no swelling, rash, distal NV intact, very ttp on lateral epicondylitis no joint effusion no warmth Neuro: Oriented X 3. No motor deficit. No sensory deficit. Medical Decision Making Medical Decision Making MDM Narrative: 38 yo male with asthma here with pain on lateral elbow but no signs of infection no warmth or effusion. At this time no trauma and no signs of infection. Already completed NSAID and steroids will sling and place on pain medications Differential Diagnosis Differential Diagnoses: The differential diagnosis associated with the presentation includes tennis elbow External Record Review External record reviewed: Outpatient record Prescription Management I considered prescription management with: Pain Medication and Other Procedures Orthopedic Splinting/Casting Injury #1: Side: right Upper Extremity Injury Location: elbow Upper Extremity Immobilizer: sling/shoulder immobilizer Additional Comments: NV intact Discharge Plan Discharge Clinical Impression: Lateral epicondylitis (tennis elbow) Qualifiers: Laterality: right Qualified Code(s): M77.11 - Lateral epicondylitis, right elbow Patient Disposition: Home, Self-Care Instructions: Tennis Elbow (ED) Additional Instructions: sling for 3 days follow up you need to use muscle relaxer, ibuprofen and topical gel. return for redness, fevers, worsening swelling or any other concerns Prescriptions: New cyclobenzaprine 10 mg tablet 10 mg PO TID PRN (Reason: muscle spasm) Qty: 20 0RF lidocaine 4 % gel 1 appl topical BID PRN (Reason: pain) Qty: 30 0RF No Action ibuprofen 800 mg tablet 800 mg PO Q8H PRN (Reason: pain) Qty: 14 0RF amoxicillin 500 mg tablet 500 mg PO BID Qty: 20 0RF albuterol sulfate 0.63 mg/3 mL solution for nebulization 0.63 mg inhalation QID PRN (Reason: shortness of breath or wheezing) Qty: 75 0RF (DME) AeroEclipse II Nebulizer Misc See Rx Instructions .ROUTE .MEDSUPPLY Qty: 1 0RF Rx Instructions: As directed albuterol sulfate 90 mcg/actuation HFA aerosol inhaler 1 inh inhalation QID PRN (Reason: shortness of breath or wheezing) Qty: 8.5 0RF azithromycin 250 mg tablet See Rx Instructions .ROUTE .COMPLEX Qty: 6 0RF Rx Instructions: take 500 mg today (day 1), then 250 mg for 4 days (days 2-5) prednisone 20 mg tablet 40 mg PO DAILY 5 Days Qty: 10 0RF prednisone 20 mg tablet 20 mg PO DAILY 7 Days Qty: 7 0RF naproxen 500 mg tablet 500 mg PO BID 7 Days Qty: 14 0RF prednisone 20 mg tablet 40 mg PO DAILY Qty: 10 0RF albuterol sulfate 90 mcg/actuation aero powdr breath act w/sensor 2 inh inhalation Q4-6H PRN (Reason: shortness of breath or wheezing) Qty: 1 0RF Stand Alone Forms: Work/School Release Print Language: Maori
== END 2024-02-04 08:14 | disposition home or self-care (01) ==
LOC: HO.ED 08:12
PROVIDERS: Emergency Provider Emergency Medicine
DX: M77.11 Lateral epicondylitis, right elbow (principal); M25.521 Pain in right elbow; F17.210 Nicotine dependence, cigarettes, uncomplicated; Z79.899 Other long term (current) drug therapy
CPT/HCPCS: 29105; 99282; 99283; 99284

== ENCOUNTER 2024-04-04 08:22 | Emergency (ER) | payer MEDICAID, SELFPAY ==
[2024-04-04 08:31] VITALS: BP 132/82; PULSE 92; RESP 18; TEMP 37.2; O2SAT 99; BMI 31.0
--- NOTE | 2024-04-04 09:36 | ED_ITS ---
HPI - Extremity Problem General Chief complaint: Extremity Injury, Upper Stated complaint: Clearance for work Time Seen by Provider: 04/04/24 09:04 Source: patient, RN notes reviewed and old records reviewed Mode of arrival: ambulatory History of Present Illness ED Provider: Debbie Bustos PA-C HPI Narrative: 38-year-old male with a past medical history of asthma presenting to the ED complaining of right elbow pain yesterday s/p lifting at work. States was sent here by his employer prior to being able to turn back to work. Denies known injury, trauma, fall. Denies pain today. Denies numbness, tingling, weakness Related Data Previous Rx's ?Medication ?Instructions ?Recorded amoxicillin 500 mg tablet 500 mg PO BID #20 tabs 03/11/20 ibuprofen 800 mg tablet 800 mg PO Q8H PRN pain #14 tabs 05/21/20 albuterol sulfate 0.63 mg/3 mL 0.63 mg (3 mL) inhalation QID PRN 04/28/21 solution for nebulization shortness of breath or wheezing #75 mL albuterol sulfate 90 mcg/actuation 1 inh inhalation QID PRN shortness 04/28/21 aerosol inhaler of breath or wheezing #8.5 grams azithromycin 250 mg tablet See Rx Instructions PO .COMPLEX #6 04/28/21 tabs nebulizers (AeroEclipse II #1 ea 04/28/21 Nebulizer) prednisone 20 mg tablet 40 mg (2 x 20 mg) PO DAILY sob 5 04/28/21 days #10 tabs albuterol sulfate 90 mcg/actuation 2 inh inhalation Q4-6H PRN 10/01/22 breath activated powder shortness of breath or wheezing #1 inhaler,sensor ea prednisone 20 mg tablet 40 mg (2 x 20 mg) PO DAILY #10 tabs 10/01/22 naproxen 500 mg tablet 500 mg PO BID 7 days #14 tabs 01/26/24 prednisone 20 mg tablet 20 mg PO DAILY 7 days #7 tabs 01/26/24 cyclobenzaprine 10 mg tablet 10 mg PO TID PRN muscle spasm #20 02/04/24 tabs lidocaine 4 % topical gel 1 appl topical BID PRN pain #30 02/04/24 grams Allergies Allergy/AdvReac Type Severity Reaction Status Date / Time No Known Allergies Allergy Verified 04/04/24 08:33 Review of Systems Review of Systems: Yes all other systems are reviewed and are negative Constitutional: Constitutional: Reports as per [facility] Past Medical History Attestation statement: The following information was validated with the patient. Source: old records reviewed Medical History Asthma Social History Social History Alcohol intake: never Patient Tobacco Use Status: Current everyday Tobacco user Advance Directives: No Advance Directives Information Provided: Yes Physical Exam Vital Signs: Vital Signs: Last Vital Signs Temp 98.9 F 04/04/24 08:31 Pulse 92 04/04/24 08:31 Resp 18 04/04/24 08:31 BP 132/82 04/04/24 08:31 Pulse Ox 99 04/04/24 08:31 O2 Del Method Room Air 04/04/24 08:31 BMI result Body Mass Index 31.0 Const: General: cooperative, healthy appearing and no acute distress Orientation/consciousness: patient oriented x3 Limitations: no limitations HEENT: Head: Yes normal to inspection and Yes atraumatic Ears: hearing grossly normal bilaterally General nose exam: Normal external nose present Face and sinus: Yes normal facial exam Eyes: General: appearance normal, both eyes and all related structures EOM: EOMs intact bilaterally Neck: Neck: Yes normal visual inspection and Yes no meningeal signs Resp: Effort & Inspection: normal respiratory effort and no respiratory distress Cardio: Rate: regular rate Skin: Rashes: no rashes Wounds: no wounds Neuro: General: patient oriented x3, tone normal and no meningeal signs Cranial nerves: Yes CN's II-XII intact bilaterally Gait exam (Neuro): Normal gait present Extrem: Other: No swelling, erythema, warmth. Nontender. Full range of motion intact. Neurovascularly intact distally General: Yes normal to inspection Medical Decision Making Medical Decision Making MDM Narrative: 38-year-old male with a past medical history of asthma presenting to the ED complaining of right elbow pain yesterday s/p lifting at work. On exam vital signs stable, NAD, nontoxic appearing, physical exam as above, no reproducible pain or evidence of trauma. No evidence of septic joint/arthritis. Unlikely fracture No need for imaging at this time, patient is asymptomatic just requesting note to return to work Please refer to course for remaining clinical decision making, interpretation of labs/imaging results, and discussions with consultants and/or family members. Results discussed with patient including worrisome signs and symptoms and strict return precautions, and when to return to the emergency department. They verbalized understanding and feel safe for discharge at this time. Differential Diagnosis Differential Diagnoses: The differential diagnosis associated with the presentation includes As above External Record Review External record reviewed: Inpatient record, Office record, Outpatient record, Prior outpatient labs, Prior outpatient radiology, Primary care record and Outside ED record Tests considered The following testing was considered but not selected: As above Social Determinants Patient?s care significantly limited by Social Determinants of Health including: Other Social Determinant of Health Discharge Plan Discharge Clinical Impression: Elbow pain Patient Disposition: Home, Self-Care Instructions: Arthralgia (ED) Additional Instructions: Ice and elevate Take ibuprofen and Tylenol as needed If area becomes swollen, red, pain is unbearable, you have numbness, tingling or weakness return to the ED Follow-up with your doctor Prescriptions: No Action ibuprofen 800 mg tablet 800 mg PO Q8H PRN (Reason: pain) Qty: 14 0RF amoxicillin 500 mg tablet 500 mg PO BID Qty: 20 0RF albuterol sulfate 0.63 mg/3 mL solution for nebulization 0.63 mg inhalation QID PRN (Reason: shortness of breath or wheezing) Qty: 75 0RF (DME) AeroEclipse II Nebulizer [facility] [place], [place] See Rx Instructions .ROUTE .MEDSUPPLY Qty: 1 0RF Rx Instructions: As directed albuterol sulfate 90 mcg/actuation HFA aerosol inhaler 1 inh inhalation QID PRN (Reason: shortness of breath or wheezing) Qty: 8.5 0RF azithromycin 250 mg tablet See Rx Instructions .ROUTE .COMPLEX Qty: 6 0RF Rx Instructions: take 500 mg today (day 1), then 250 mg for 4 days (days 2-5) prednisone 20 mg tablet 40 mg PO DAILY 5 Days Qty: 10 0RF prednisone 20 mg tablet 20 mg PO DAILY 7 Days Qty: 7 0RF naproxen 500 mg tablet 500 mg PO BID 7 Days Qty: 14 0RF cyclobenzaprine 10 mg tablet 10 mg PO TID PRN (Reason: muscle spasm) Qty: 20 0RF lidocaine 4 % gel 1 appl topical BID PRN (Reason: pain) Qty: 30 0RF prednisone 20 mg tablet 40 mg PO DAILY Qty: 10 0RF albuterol sulfate 90 mcg/actuation aero powdr breath act w/sensor 2 inh inhalation Q4-6H PRN (Reason: shortness of breath or wheezing) Qty: 1 0RF Referrals: Physician,None [Primary Care Provider] - Stand Alone Forms: Work/School Release Print Language: Portuguese
[2024-04-04 09:44] VITALS: BP 132/82; PULSE 92; RESP 18; TEMP 37.2; O2SAT 99
== END 2024-04-04 09:47 | disposition home or self-care (01) ==
PROVIDERS: Emergency Provider Emergency Medicine Emergency Medical Services
DX: Z04.2 Encounter for examination and observation following work accident (principal); M25.521 Pain in right elbow
CPT/HCPCS: 99282

== ENCOUNTER 2024-04-25 07:37 | Emergency (ER) | payer OTHER, MEDICAID, SELFPAY ==
--- NOTE | ~2024-04-25 | XR_ITS ---
EXAMINATION: XR HAND, RIGHT CLINICAL INFORMATION: work injury COMPARISON: None available. TECHNIQUE: PA, lateral, and oblique views of the right hand. FINDINGS: The bones and soft tissues are normal. No fracture. Alignment is anatomic. Joint spaces are maintained. No erosions or soft tissue calcifications. XR/XR hand RT min 3V IMPRESSION: Normal right hand. Electronically signed by: Endy Serrano MD 04/25/2024 08:18 AM [facility]
[2024-04-25 07:42] VITALS: BP 130/70; PULSE 64; RESP 18; TEMP 36.8; O2SAT 99; BMI 28.4
--- NOTE | 2024-04-25 09:17 | ED.EXTPRO ---
HPI - Extremity Problem General Chief complaint: Extremity Injury, Upper Stated complaint: Finger injury @ work Time Seen by Provider: 04/25/24 09:10 Source: patient, RN notes reviewed and old records reviewed Mode of arrival: ambulatory History of Present Illness ED Provider: Debbie Bustos PA-C HPI Narrative: 38-year-old male with a past medical history of asthma presenting to the ED complaining of right 5th digit pain/swelling and ecchymosis s/p finger being stuck in machine press at work yesterday. Denies numbness, tingling, weakness, injury to other area. Related Data Previous Rx's ?Medication ?Instructions ?Recorded amoxicillin 500 mg tablet 500 mg PO BID #20 tabs 03/11/20 ibuprofen 800 mg tablet 800 mg PO Q8H PRN pain #14 tabs 05/21/20 albuterol sulfate 0.63 mg/3 mL 0.63 mg (3 mL) inhalation QID PRN 04/28/21 solution for nebulization shortness of breath or wheezing #75 mL albuterol sulfate 90 mcg/actuation 1 inh inhalation QID PRN shortness 04/28/21 aerosol inhaler of breath or wheezing #8.5 grams azithromycin 250 mg tablet See Rx Instructions PO .COMPLEX #6 04/28/21 tabs nebulizers (AeroEclipse II #1 ea 04/28/21 Nebulizer) prednisone 20 mg tablet 40 mg (2 x 20 mg) PO DAILY sob 5 04/28/21 days #10 tabs albuterol sulfate 90 mcg/actuation 2 inh inhalation Q4-6H PRN 10/01/22 breath activated powder shortness of breath or wheezing #1 inhaler,sensor ea prednisone 20 mg tablet 40 mg (2 x 20 mg) PO DAILY #10 tabs 10/01/22 naproxen 500 mg tablet 500 mg PO BID 7 days #14 tabs 01/26/24 prednisone 20 mg tablet 20 mg PO DAILY 7 days #7 tabs 01/26/24 cyclobenzaprine 10 mg tablet 10 mg PO TID PRN muscle spasm #20 02/04/24 tabs lidocaine 4 % topical gel 1 appl topical BID PRN pain #30 02/04/24 grams Allergies Allergy/AdvReac Type Severity Reaction Status Date / Time No Known Allergies Allergy Verified 04/25/24 07:44 Review of Systems Review of Systems: Yes all other systems are reviewed and are negative Constitutional: Constitutional: Reports as per [facility] Past Medical History Attestation statement: The following information was validated with the patient. Source: old records reviewed Medical History Asthma Social History Social History Alcohol intake: never Patient Tobacco Use Status: Current everyday Tobacco user Advance Directives: No Advance Directives Information Provided: Yes Do you have a plan to hurt others: No Plan Physical Exam Vital Signs: Vital Signs: Last Vital Signs Temp 98.3 F 04/25/24 07:42 Pulse 64 04/25/24 07:42 Resp 18 04/25/24 07:42 BP 130/70 04/25/24 07:42 Pulse Ox 99 04/25/24 07:42 O2 Del Method Room Air 04/25/24 07:42 BMI result Body Mass Index 28.4 Const: General: cooperative, healthy appearing and no acute distress Orientation/consciousness: patient oriented x3 Limitations: no limitations HEENT: Head: Yes normal to inspection and Yes atraumatic Ears: hearing grossly normal bilaterally General nose exam: Normal external nose present Face and sinus: Yes normal facial exam Eyes: General: appearance normal, both eyes and all related structures EOM: EOMs intact bilaterally Neck: Neck: Yes normal visual inspection and Yes no meningeal signs Resp: Effort & Inspection: normal respiratory effort and no respiratory distress Cardio: Rate: regular rate Skin: Rashes: no rashes Wounds: no wounds Neuro: General: patient oriented x3, tone normal and no meningeal signs Cranial nerves: Yes CN's II-XII intact bilaterally Gait exam (Neuro): Normal gait present Extrem: Other: Right 5th digit MCP with appreciable swelling and ecchymosis. Nontender, FROM intact. NV intact, finger to thumb opposition intact Course Course Course Narrative: XR hand RT min 3V IMPRESSION: Normal right hand. Results discussed with patient including worrisome signs and symptoms and strict return precautions, and when to return to the emergency department. They verbalized understanding and feel safe for discharge at this time. Medical Decision Making Medical Decision Making MDM Narrative: 38-year-old male with a past medical history of asthma presenting to the ED complaining of right 5th digit pain/swelling and ecchymosis s/p finger being stuck in machine press at work yesterday. On exam vital signs stable, NAD, nontoxic appearing physical exam as noted above. Concern for crush injury/contusion vs fracture vs sprain Plan: X-rays Please refer to course for remaining clinical decision making, interpretation of labs/imaging results, and discussions with consultants and/or family members. Differential Diagnosis Differential Diagnoses: The differential diagnosis associated with the presentation includes As above Independent Interpretation I performed an independent interpretation of an: Plain X-Ray Radiology Impression Discussion of test interpretation with radiology: I have reviewed the radiologist's reading. External Record Review External record reviewed: Inpatient record, Office record, Outpatient record, Prior outpatient labs, Prior outpatient radiology, Primary care record and Outside ED record Tests considered The following testing was considered but not selected: As above Prescription Management I considered prescription management with: Pain Medication Social Determinants Patient?s care significantly limited by Social Determinants of Health including: Other Social Determinant of Health Discharge Plan Discharge Clinical Impression: Crush injury Patient Disposition: Home, Self-Care Instructions: Crush Injury (ED) Additional Instructions: Your x-rays unremarkable. Ice and elevate Take Tylenol and ibuprofen at home for pain and Follow up with her doctor if symptoms persist or worsen return to the emergency department Prescriptions: No Action ibuprofen 800 mg tablet 800 mg PO Q8H PRN (Reason: pain) Qty: 14 0RF amoxicillin 500 mg tablet 500 mg PO BID Qty: 20 0RF albuterol sulfate 0.63 mg/3 mL solution for nebulization 0.63 mg inhalation QID PRN (Reason: shortness of breath or wheezing) Qty: 75 0RF (DME) AeroEclipse II Nebulizer [facility] [place] See Rx Instructions .ROUTE .MEDSUPPLY Qty: 1 0RF Rx Instructions: As directed albuterol sulfate 90 mcg/actuation HFA aerosol inhaler 1 inh inhalation QID PRN (Reason: shortness of breath or wheezing) Qty: 8.5 0RF azithromycin 250 mg tablet See Rx Instructions .ROUTE .COMPLEX Qty: 6 0RF Rx Instructions: take 500 mg today (day 1), then 250 mg for 4 days (days 2-5) prednisone 20 mg tablet 40 mg PO DAILY 5 Days Qty: 10 0RF prednisone 20 mg tablet 20 mg PO DAILY 7 Days Qty: 7 0RF naproxen 500 mg tablet 500 mg PO BID 7 Days Qty: 14 0RF cyclobenzaprine 10 mg tablet 10 mg PO TID PRN (Reason: muscle spasm) Qty: 20 0RF lidocaine 4 % gel 1 appl topical BID PRN (Reason: pain) Qty: 30 0RF prednisone 20 mg tablet 40 mg PO DAILY Qty: 10 0RF albuterol sulfate 90 mcg/actuation aero powdr breath act w/sensor 2 inh inhalation Q4-6H PRN (Reason: shortness of breath or wheezing) Qty: 1 0RF Referrals: Physician,None [Primary Care Provider] - Stand Alone Forms: Work/School Release Print Language: Mongolian
[2024-04-25 09:24] VITALS: BP 130/70; PULSE 64; RESP 18; TEMP 36.8; O2SAT 99
== END 2024-04-25 09:24 | disposition home or self-care (01) ==
PROVIDERS: Emergency Provider Emergency Medicine Emergency Medical Services
DX: Z04.2 Encounter for examination and observation following work accident (principal); M79.644 Pain in right finger(s); M79.89 Other specified soft tissue disorders; F17.200 Nicotine dependence, unspecified, uncomplicated
CPT/HCPCS: 73130; 99282; 99283

== ENCOUNTER → 2024-04-25 07:47 | Outpatient (BNV) | payer OTHER, MEDICAID, SELFPAY | PROVIDERS: Visit Provider Radiology Diagnostic Radiology | DX: S69.92XA Unspecified injury of left wrist, hand and finger(s), initial encounter (principal) | CPT/HCPCS: 73130 ==